=== PATIENT | male | born 1995 ===

== ENCOUNTER 2017-04-15 15:22 | Emergency (ER) | payer BC, OTHER ==
--- NOTE | 2017-04-15 17:11 | UC ---
Hand/Wrist HPI - HPI Summary HPI Summary: The patient comes in today for: 1. Right hand injury: Onset: 3 days ago. Palliative/provocative: Writing makes it worse when he does it for a while. Rest makes it better. Quality: Sharp with use and dull ache after use. Region: Dorsum of the right hand. Severity: 2/10 at rest. 9/10 with use. Time: Constant. Associated symptoms: Event: He was pushing a wheelbarrow up a hill. He slipped and he and the wheelbarrow rolled down the hill. His right had was caught between the wheelbarrow and the hill until he pulled it out. States that at rest, he is doing OK. But when he closes the fist, there is pain. Extension and flexion makes it worse. He only has taken Tylenol for this which has helped. He wonders if he has a fracture. He had a similar injury to his left hand and there was a fracture. * - History Of Current Complaint Stated Complaint: RIGHT HAND INJURY Time Seen by Provider: 04/15/17 17:05 Hx Obtained From: Patient - Allergies/Home Medications Allergies/Adverse Reactions: Allergies Allergy/AdvReac Type Severity Reaction Status Date / Time Ceftriaxone Allergy Severe hives/ Verified 04/15/17 17:22 swelling Cefuroxime [From Ceftin] Allergy Severe hives/ Verified 04/15/17 17:22 swelling Home Medications: Home Medications LoraTADine TAB(NF) [Claritin 10 MG TAB(NF)] 10 mg PO DAILY 04/15/17 [History Confirmed 04/15/17] PMH/Surg Hx/FS Hx/Imm Hx Previously Healthy: No - Allergies. Other History Of: Negative For: HIV, Hepatitis B, Hepatitis C, Anticoagulant Therapy - Surgical History Surgical History: Yes Surgery Procedure, Year, and Place: tubes in ears. opening tear ducts. - Family History Known Family History: Positive: Hypertension Negative: Cardiac Disease - Social History Occupation: Employed Full-time Alcohol Use: None Substance Use Type: None Smoking Status (MU): Never Smoked Tobacco Review of Systems Constitutional: Negative Skin: Negative Eyes: Negative ENT: Negative Respiratory: Negative Cardiovascular: Negative Gastrointestinal: Negative Genitourinary: Negative Musculoskeletal: Arthralgia All Other Systems Reviewed And Are Negative: Yes Physical Exam Triage Information Reviewed: Yes Appearance: Well-Appearing, No Pain Distress, Well-Nourished Vital Signs Reviewed: Yes Eyes: Positive: Conjunctiva Clear ENT: Positive: Hearing grossly normal. Negative: Pharyngeal erythema, Nasal congestion, Nasal drainage, TM bulging, TM dull, TM red, Tonsillar swelling, Tonsillar exudate Dental: Negative: Gross Decay/Caries @, Dental Fracture @ Neck: Positive: Supple, Nontender, No Lymphadenopathy. Negative: Nuchal Rigidity Respiratory: Positive: Lungs clear, No respiratory distress, No accessory muscle use. Negative: Rhonchi, Wheezing Cardiovascular: Positive: RRR, No Murmur Abdomen Description: Positive: Nontender, No Organomegaly, Soft. Negative: Distended, Guarding Musculoskeletal: Positive: Strength Intact, ROM Intact, Edema @, Other: - The back of his right hand shows an avultion/abrasion about 7 mm x 3 mm. There is an erythematous around it consistent with healing erythema There is also edema as expected for that area consistent with this abrasion/avulsion. There is no discharge or fluctuance. There is mild tenderness to palpation. Neurological: Positive: Alert, Muscle Tone Normal Skin: Positive: Other - Abrasion/avulsion of the back of the right hand. Diagnostics - Radiology No standard instances Xray Interpretation: No Acute Changes Radiology Interpretation Completed By: Radiologist Hand/Wrist Course/Dx - Differential Dx/Diagnosis Differential Diagnosis/HQI/PQRI: Bursitis, Fracture Provider Diagnoses: small avulsion/abrasion of the dorsum of the right hand. Tendonitis Discharge - Discharge Plan Condition: Stable Disposition: HOME Patient Education Materials: Tendinitis (ED), Skin Avulsion (ED), Contusion in Adults (ED) Referrals: DENG Flynn [Primary Care Provider] - 1 Week (Please see your primary care provider in about one to two weeks to see how well you are doing. If you get worse, please be seen sooner.)
--- NOTE | 2017-04-15 17:31 | RAD ---
INDICATION: Right hand injury COMPARISON: None TECHNIQUE: AP, lateral, and oblique views were obtained. FINDINGS: The bony structures, joint spaces, and soft tissues are normal for age. IMPRESSION: NEGATIVE EXAMINATION.
[2017-04-15 17:37] VITALS: BP 130/73
== END 2017-04-15 18:09 | disposition home or self-care (01) ==
LOC: UCCORT 15:22
DX: S61.401A Unspecified open wound of right hand, initial encounter (principal); W31.89XA Contact with other specified machinery, initial encounter; M77.9 Enthesopathy, unspecified
CPT/HCPCS: 99203; G0463

== ENCOUNTER 2017-05-04 10:56 | Emergency (ER) | payer BC | END 2017-05-04 12:54 | disposition left against medical advice (07) | LOC: UCCORT 10:56 | DX: S49.91XA Unspecified injury of right shoulder and upper arm, initial encounter (principal); Z53.21 Procedure and treatment not carried out due to patient leaving prior to being seen by health care provider; X58.XXXA Exposure to other specified factors, initial encounter; Y92.9 Unspecified place or not applicable ==

== ENCOUNTER 2017-05-04 14:50 | Emergency (ER) | payer BC ==
[2017-05-04 15:14] VITALS: BP 152/71
--- NOTE | 2017-05-04 15:29 | UC ---
Shoulder Pain HPI - History of Current Complaint Chief Complaint: UCUpperExtremity Stated Complaint: RIGHT SHOULDER INJURY Time Seen by Provider: 05/04/17 15:18 Hx Obtained From: Patient Onset/Duration: Sudden Onset - wresling and heard a pop and felt pain., Worse Since - onset Timing: Constant Severity Initially: Moderate Severity Currently: Moderate Location Of Pain: Is Discrete @ - right clavicle and the neck. Pain Intensity: 7 Character: Sharp - stabbing burning pain with certain movement., Aching, Throbbing - at rest. Aggravating Factor(s): Movement Alleviating Factor(s): Rest Associated Signs And Symptoms: Positive: Weakness - ? due to pain with right hand grasp. Related History: Dominant Hand Right - Risk Factors Non-Orthopedic Risk Factor: Negative DVT Risk Factors: Negative Septic Arthritis Risk Factor: Negative - Allergies/Home Medications Allergies/Adverse Reactions: Allergies Allergy/AdvReac Type Severity Reaction Status Date / Time Ceftriaxone Allergy Severe hives/ Verified 05/04/17 15:09 swelling Cefuroxime [From Ceftin] Allergy Severe hives/ Verified 05/04/17 15:09 swelling PMH/Surg Hx/FS Hx/Imm Hx Previously Healthy: Yes Other History Of: Negative For: HIV, Hepatitis B, Hepatitis C, Anticoagulant Therapy - Surgical History Surgical History: Yes Surgery Procedure, Year, and Place: tubes in ears. opening tear ducts. - Family History Known Family History: Positive: Cardiac Disease, Hypertension, Diabetes - Social History Occupation: Student Lives: With Family Alcohol Use: Occasionally Substance Use Type: None Smoking Status (MU): Never Smoked Tobacco Have You Smoked in the Last Year: No - Immunization History Most Recent Influenza Vaccination: NONE Most Recent Tetanus Shot: UTD Review of Systems ENT: Nasal Discharge - due to allergies. All Other Systems Reviewed And Are Negative: Yes Physical Exam Triage Information Reviewed: Yes Appearance: Well-Appearing, No Pain Distress - at rest, Well-Nourished Vital Signs: Initial Vital Signs Temp 98.6 F 05/04/17 15:09 Pulse 77 05/04/17 15:09 Resp 14 05/04/17 15:09 BP 152/71 05/04/17 15:09 Pulse Ox 100 05/04/17 15:09 Vital Signs Reviewed: Yes Eyes: Positive: Conjunctiva Clear Neck: Positive: Tenderness @ - on the cervical spinous processes and the cervical paraspinal muscles and scalenes. Respiratory Exam: Normal Cardiovascular Exam: Normal Musculoskeletal: Positive: Strength Intact - right shoulder internal rotation intact., Strength Limited @ - right shoulder external rotation and abduction decreased strength with significant pain., ROM Limited @ - right shoulder flexion and abduction limited to about 60 degrees. Neurological Exam: Normal Psychological Exam: Normal Skin Exam: Normal Shoulder Course/Dx - Differential Dx/Diagnosis Differential Diagnosis/HQI/PQRI: AC Separation, Rotator Cuff Injury, Sprain, Tendonitis Provider Diagnoses: Rotator cuff Sprain/ Partial tear. Discharge - Discharge Plan Condition: Stable Disposition: HOME Prescriptions: Cyclobenzaprine TAB* [Flexeril 10 MG TAB*] 10 mg PO TID PRN #30 tab PRN Reason: Spasms - Muscle Ibuprofen TAB* [Motrin TAB* 600 MG] 600 mg PO Q6H PRN #100 tab PRN Reason: Pain Patient Education Materials: Rotator Cuff Injury (ED), Cyclobenzaprine (By mouth), Ibuprofen (By mouth)
--- NOTE | 2017-05-04 16:10 | RAD ---
INDICATION: Right shoulder after "pulling injury" the previous night COMPARISON: None. TECHNIQUE: 4 views of the right shoulder were obtained. FINDINGS: The adequately corticated bones are in normal alignment. Joint spaces appear maintained. No fracture, dislocation or focal bony abnormality is seen. IMPRESSION: Normal radiograph of the right shoulder. If the patient's symptoms persist, follow-up imaging is recommended.
== END 2017-05-04 15:56 | disposition home or self-care (01) ==
LOC: UCCORT 14:50
DX: M75.111 Incomplete rotator cuff tear or rupture of right shoulder, not specified as traumatic (principal); Y93.72 Activity, wrestling; Y93.59 Activity, other involving other sports and athletics played individually
CPT/HCPCS: 99213; G0463